=== PATIENT | female | born 1990 | race Caucasian/White ===

== ENCOUNTER 2019-03-15 15:54 | Emergency (ER) | payer OTHER ==
[~2019-03-15] VITALS: Ht 177.8 cm; Wt 88.0 kg
--- NOTE | ~2019-03-15 | EMS ---
[facility] [address] [place] [address] EMS Patient Care Report Name: YOAN BLANCAS Room #: [facility] M.R.#: [id number] Admission: ������������������ Attend Phys: Discharge: ������������������ Date of : [birth year] Report #: [id number] THIS REPORT FOR: //name// Report Transmitted: 03/15/2019 15:32 EMS Care Summary [facility] MED-ACT Incident [id number] @ 03/15/2019 14:55 Incident Location [address] [place] [address] Patient YOAN PERRY Female, 28 Years 1990 Patient Address [address] [place] [id number] Patient History Palpitations, Patient Allergies No known allergies, Patient Medications None Reported, Chief Complaint "I'm having palpitations" Disposition Transported No Lights/[place] Dispatch Reason Heart Problems/AICD Transported To [facility] Narrative [id number] enters scene to find one pt lying on her L side in the conference room of a local business. Pt reports that she has been experiencing palpitations for the past half hour. 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 Pt reports that she can [facility] [address] [place] [address] EMS Patient Care Report Name: YOAN BLANCAS Room #: [facility] Nicole.#: [id number] Admission: ������������������ Attend Phys: Discharge: ������������������ Date of : [birth year] Report #: [id number] normally tell when the palpitations are going to begin as she develops pain in her jaw. Pt reports that she was at rest at her desk this afternoon when the pain in her jaw began. Pt states that she is usually able to terminate the rhythm by lying on her L side, but states that she was unable to do so today. Pt states that she has no CP, SOB, or other signs of ACS. Pt reports that she has never been diagnosed with SVT. Pt states that she takes no medication to regulate the PVC's and states that her caffeine intake has been normal for her today. After SVT is identified, pt is deemed stable due to normotension and no signs to support instability, therefore 12-lead is acquired and IV is established. Modified vagal maneuver is performed and is successful in converting pt to a sinus rhythm at approximately 125. Pt requires no Adenosine or pharmaceutical intervention during the call. Pt care is transferred to [facility] without incident. Initial Vitals @15:09P: 221,Pain: 0/10,[place] Suspected: false @15:28P: 125,R: 16,BP: 125/84,GCS: 15,SpO2: 97,Revised Trauma: 12,[place] Suspected: false @15:07P: 216,R: 16,BP: 140/71,Pain: 0/10,GCS: 15,Glucose: 151,SpO2: 100,Revised Trauma: 12,[place] Suspected: false @15:18P: 105,R: 16,Pain: 0/10,GCS: 15,SpO2: 98,[place] Suspected: false Assessments @15:07MENTAL:SKIN:HEENT:Head/Face: No Abnormalities,LUNG SOUNDS:ABDOMEN:PELVIS//GI:EXTREMITIES:PULSE:NEURO:No Abnormalities, Impression Cardiac arrhythmia/dysrhythmia Procedures @15:1812-Lead ECGResponse: UnchangedSucceeded@15:0912-Lead ECGResponse: UnchangedSucceeded@15:12Normal Saline (.9% NaCl) 10cc (22 ga) Site: Antecubital-LeftResponse: UnchangedSucceeded Timeline 14:55,Call Received 14:55,Psap Call 14:55,Dispatched 14:56,En Route 15:01,On Scene 15:05,At Patient 15:07,BP: 140/71 M,PULSE: 216,RR: 16 R,SPO2: 100 Ox,ETCO2: ,B,PAIN: 0,GCS: 15, 15:09,12-Lead ECG,Response: UnchangedSucceeded, 15:09,BP: / M,PULSE: 221,RR: R,SPO2: Ox,ETCO2: ,BG: ,PAIN: 0,GCS: , 15:12,Normal Saline (.9% NaCl) 10cc 22 ga Site: Antecubital-Left,Response: [facility] [address] [place] [address] EMS Patient Care Report Name: YONNYYOAN N Room #: [facility].#: [id number] Admission: ������������������ Attend Phys: Discharge: ������������������ Date of : [birth year] Report #: [id number] UnchangedSucceeded, 15:18,12-Lead ECG,Response: UnchangedSucceeded, 15:18,BP: / M,PULSE: 105,RR: 16 R,SPO2: 98 Ox,ETCO2: ,BG: ,PAIN: 0,GCS: 15, 15:28,BP: 125/84 M,PULSE: 125,RR: 16 R,SPO2: 97 Ox,ETCO2: ,BG: ,PAIN: ,GCS: 15, 15:29,Depart Scene 15:38,At Destination 15:56,Call Closed Disclaimer v1.1 Copyright 2019 [employer] This EMS Care Summary contains data elements from the applicable legal record (which may be displayed differently). It is designed to provide pertinent information for the following purposes: continuity of care, clinical quality, and state data reporting. The complete legal record is available to ED staff and administrators of the receiving hospital in ES's Patient Tracker. All data is provided "as is."
[~2019-03-15 15:54] MED LIST: LEVORA-281 EACH PO; NORCO 5-325 TA1 EACH PO
[2019-03-15 16:11] LABS: CALCIUM 9.2 mg/dL (8.5-10.1); CREATININE 0.8 mg/dL (0.6-1.0); POTASSIUM 3.6 mmol/L (3.5-5.1)
[2019-03-15 16:12] VITALS: BP 118/81
[2019-03-15 16:17] LABS: ALBUMIN 4.1 g/dL (3.4-5.0); TOTAL BILIRUBIN 0.4 mg/dL (<0.1-1.0); TOTAL PROTEIN 7.8 g/dL (6.4-8.2)
[2019-03-15 16:24] LABS: ABSOLUTE NEUTROPHILS 6.9 thou/uL (1.4-8.2); BASOPHILS 0.3 % (0.0-2.0); EOSINOPHILS 0.2 % (0.0-3.0); HEMATOCRIT 41.3 % (37.0-47.0); HEMOGLOBIN 13.9 gm/dL (12.0-15.0); LYMPHOCYTES 18.1 % (24.0-44.0); MCH 30.5 pg (26.0-34.0); MCHC 33.7 g/dL (28.0-37.0); MCV 90.4 fL (80.0-100.0); MONOCYTES 5.3 % (1.0-8.0); PLATELET COUNT 211 thou/uL (150-400); POLYS 76.1 % (36.0-66.0); RBC 4.57 mil/uL (4.20-5.00); RDW 13.2 % (10.5-14.5); WBC 9.1 thou/uL (4.0-11.0)
[2019-03-15 16:41] LABS: MAGNESIUM 2.1 mg/dL (1.8-2.4); TROPONIN-I <0.06 ng/mL (<0.06)
--- NOTE | 2019-03-16 07:54 | EKG ---
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1990 Requested By: Gil Rogers Order Number: [id number] MD: Nicholas Banegas Measurements Intervals Winfred Rate: 103 P: 61 MO: 186 QRS: 9 QRSD: 155 T: 44 QT: 314 QTc: 411 Interpretive Statements Sinus tachycardia Otherwise normal tracing No previous ECG available for comparison Electronically Signed On 03-16-2019 7:54:45 CDT by Nicholas Bangeas [email or web address] ��������������������������������������������� <ELECTRONICALLY SIGNED> ���������������������������������������� By: Nicholas Banegas MD, [facility] ��������������������������������������������� 03/16/19 [id number] [id number] 1554 Nicholas Banegas MD, FAC /EPI
== END 2019-03-15 17:11 | disposition home or self-care (01) ==
LOC: ER 15:54
PROVIDERS: Emergency Medicine
DX: R00.2 Palpitations (principal); I10 Essential (primary) hypertension